=== PATIENT | female | born 2000 | race Caucasian/White ===

== ENCOUNTER 2019-05-13 16:02 | Emergency (ER) | payer MEDICAID ==
[~2019-05-13] VITALS: Ht 157.5 cm; Wt 59.5 kg
[~2019-05-13 16:02] MED LIST: ACET500C5 PO; NAPR-985 PO
[2019-05-13 16:08] VITALS: BP 122/59; PULSE 71; RESP 18; Ht 157.5 cm; Wt 59.5 kg
== END 2019-05-13 17:42 | disposition left against medical advice (07) ==
LOC: FTE 16:02
DX: O02.1 Missed abortion (principal)
CPT/HCPCS: 99282

== ENCOUNTER 2019-05-20 04:51 | Emergency (ER) | payer MEDICAID ==
[~2019-05-20] VITALS: Ht 162.6 cm; Wt 58.6 kg
[2019-05-20 04:57] VITALS: Ht 162.6 cm; Wt 58.6 kg
[2019-05-20] MEDS ORDERED: ACETAMINOPHEN 500 MG TAB PO STA (05:29)
[2019-05-20] MEDS ORDERED: SOD CHLORIDE 0.9% 1,000 ML IV ONE (05:30)
[2019-05-20] MEDS ORDERED: METOCLOPRAMIDE 10 MG INJ IV ONE (05:30)
[2019-05-20 08:48] VITALS: BP 114/54; PULSE 74; RESP 18
== END 2019-05-20 08:48 | disposition home or self-care (01) ==
LOC: FTE 04:51
DX: O03.9 Complete or unspecified spontaneous abortion without complication (principal); O26.891 Other specified pregnancy related conditions, first trimester; R10.2 Pelvic and perineal pain
CPT/HCPCS: 36415; 76801; 80053; 81001; 82150; 83690; 84702; 85025; 86850; 86900; 86901; 87086; 96361; 96374; J2765; J7030; Z7502; Z7610

== ENCOUNTER 2019-05-22 10:56 | Emergency (ER) | payer MEDICAID ==
[~2019-05-22] VITALS: Ht 154.9 cm; Wt 60.0 kg
[2019-05-22 11:00] VITALS: BP 108/51; PULSE 88; RESP 16; Ht 154.9 cm; Wt 60.0 kg
== END 2019-05-22 13:55 | disposition home or self-care (01) ==
LOC: FTE 10:56
DX: O03.9 Complete or unspecified spontaneous abortion without complication (principal)
CPT/HCPCS: 36415; 84702; 85025; Z7502; 99283